=== PATIENT | female | born 1940 | race Caucasian/White ===

== ENCOUNTER 2016-08-08 06:47 | Observation (INO) | payer OTHER ==
--- NOTE | 2016-08-07 17:17 | GHP ---
[f rep st] PREOP HISTORY AND PHYSICAL ADMISSION DIAGNOSIS: Symptomatic rectocele. HISTORY: This is a 76-year-old lady who has had a significant rectocele with symptoms and some mild prolapse, and she has been fitted with a pessary in the past that was not successful in treatment of her problem. At the present time, she is to undergo rectocele repair with possible colpocleisis. She has had a previous transobturator tape years ago, and then had a sacrospinous suspension, 2013. She has been pleased with the results. She is not sexually active and a colpocleisis would be appropriate. She is to undergo repair of the rectocele with porcine material. PAST MEDICAL HISTORY: Chronic cystitis with bladder issues, prolapsed vaginal wall, rectocele. PAST SURGERIES: Have been bladder sling, breast surgery, gallbladder, hysterectomy, and transobturator tape. MEDICATIONS: Include probiotics, Synthroid, vitamins. ALLERGIES: To nitrofurantoin, sulfonamides, and trimethoprim. FAMILY HISTORY: Hypertension. SOCIAL HISTORY: Nonsmoker, nondrinker. . Retired. REVIEW OF SYSTEMS: Negative cardiac, respiratory, endocrine. GI: Positive because of the rectocele. PHYSICAL EXAM: VITAL SIGNS: Stable. CHEST: Clear. HEART: Regular rate, rhythm. ABDOMEN: Normal. No organomegaly, rebound or guarding. She does have abdominal obesity, and on exam, she has significant rectocele. PLAN: At the present time, she is admitted for the rectocele repair. Indications, complications, options, and risks associated with the procedure have been discussed. Written and verbal consent was obtained. She is admitted for the above procedure. /[id number]/MODL MTDD
[2016-08-08] MEDS ORDERED: LIDOCAINE 1% 2 ML INJ ONE (06:54)
[2016-08-08] MEDS ORDERED: ceFAZolin 2 GM/DEXTROSE 100 ML IV ONE (07:00)
[2016-08-08] MEDS ORDERED: BUPIVACAINE/EPI 0.25% 30 ML SDV ONE (07:43)
[2016-08-08] MEDS ORDERED: ONDANSETRON 4 MG/2 ML VIAL ONE (07:47)
[2016-08-08] MEDS ORDERED: ROCURONIUM 50 MG/5 ML VIAL ONE (07:47)
[2016-08-08] MEDS ORDERED: DEXAMETHASONE 4 MG/ML VIAL ONE (07:47)
[2016-08-08] MEDS ORDERED: LIDOCAINE 2% 100 MG/5 ML SYR ONE (07:47)
[2016-08-08] MEDS ORDERED: PROPOFOL 200 MG/20 ML VIAL ONE (07:48)
[2016-08-08] MEDS ORDERED: fentaNYL 250 MCG/5 ML INJ ONE (07:48)
[2016-08-08] MEDS ORDERED: MIDAZOLAM 2 MG/2 ML VIAL ONE (08:21)
[2016-08-08] MEDS ORDERED: METHYLENE BLUE 0.5% 50 MG/10 ML AMP ONE (08:43)
[2016-08-08] MEDS ORDERED: epHEDrine SULFATE 10 MG/ML SYR ONE (09:01)
[2016-08-08] MEDS ORDERED: SUGAMMADEX SODIUM 200 MG/2 ML VIAL IVP ONE (09:48)
[2016-08-08] MEDS ORDERED: fentaNYL 100 MCG/2 ML INJ ONE (09:59)
[2016-08-08] MEDS ORDERED: HYDROmorphONE/DILAUDID 1 MG/ML SYR ONE (09:59)
[2016-08-08 10:51] VITALS: RESP 18
--- NOTE | 2016-08-08 11:24 | GOP ---
[f rep st] OPERATIVE REPORT DATE OF OPERATION: 08/08/2016 SURGEON: Tavo Jiang MD PREOPERATIVE DIAGNOSIS: Symptomatic rectocele with vaginal prolapse. POSTOPERATIVE DIAGNOSIS: Symptomatic rectocele with vaginal prolapse. PROCEDURE PERFORMED: Sacrospinous ligament suspension of rectocele using Strattice reconstructive t issue matrix. FINDINGS: SPECIMENS: Vaginal wall posteriorly. ESTIMATED BLOOD LOSS: 25 mL DESCRIPTION OF PROCEDURE: After appropriate time-out and undergoing general anesthesia with Dr. Charla ying, she had the posterior vaginal wall infiltrated subcutaneously with a combination of Marcaine and saline for hydrodissection, and at that point, incision was made and I mobilized the colon separ ate from the vaginal wall. I then went up to identify both the sacrospinous ligaments and promontor y on both the right and left sides. With the Capio needle, I was able to pass the needle into the sa crospinous ligament 1 cm medial to the prominence and then used the Strattice and I measured a trape zoid site that was 11 cm at the top, 6 cm at the apex and 11 cm arm length on both the right and lef t sides. Then at that point, placed Vicryl at the top of the vaginal cuff and then pexed the Stratt ice material appropriately with the 2 sacrospinous sutures and the Vicryl. I did approximate the ap ex of the vagina several times with Vicryl to make sure there was no internal herniation and then ap proximated the Strattice material to the most distal part of the vaginal vault and the levators and made sure not to incorporate any intestinal lumen. There were internal hernias after closure with r einforcement of the edges of the material. Hemostasis noted. I excised redundant vaginal wall and then closed it with a 3-0 Vicryl, and tried to approximate and close the space the best possibl e way and then a VagPak was placed. She tolerated the procedure well. Rectal exam afterwards revea led no compromise of the rectal vault and no encroachment on the mucosa with any sutures. Catheter will be remaining in place and she will be admitted for postoperative care for 24 hour obs. COMPLICATIONS: None. /[id number]/MODL
[2016-08-08] MEDS: OXYCODONE/APAP 5/325 TAB PO PRN ×2 (13:03→21:31)
[2016-08-08] MEDS ORDERED: DOCUSATE SODIUM 100 MG CAP PO SCH (21:00)
[2016-08-09 05:22] VITALS: TEMP 98
[2016-08-09] MEDS ORDERED: NON-FORMULARY NEW DRUG (Epinephrine [Epipen 0.3 Mg] 0.3 MG) IM PRN (08:13)
[2016-08-09 08:30] VITALS: BP 124/82; PULSE 72; O2SAT 90
[2016-08-09] MEDS ORDERED: ASCORBIC ACID 500 MG TAB PO SCH (09:00)
[2016-08-09] MEDS ORDERED: CYANO/VITAMIN B12 1000 MCG TAB PO SCH (09:00)
[2016-08-09] MEDS ORDERED: CHOLECALCIFEROL VIT D3 1,000 UNITS TAB PO SCH (09:00)
[2016-08-09] MEDS ORDERED: MULTIVITAMINS 1 EACH TAB PO SCH (09:00)
[2016-08-09] MEDS ORDERED: Herbals/Supplements -Info Only PO SCH (09:00)
[2016-08-09] MEDS ORDERED: TEARS/DEXTRAN 70/HYPROMELLOSE 15 ML OPHT.BTL EACHEYE SCH (12:00)
[2016-08-10] MEDS ORDERED: LEVOTHYROXINE 100 MCG TAB PO SCH
== END 2016-08-09 09:58 | disposition home or self-care (01) ==
LOC: F1N 06:47
PROVIDERS: ADMIT Specialist; ATTEND Specialist
PROC: 0USG0ZZ Reposition Vagina, Open Approach (ICD-10-PCS; principal; 2016-08-08 08:30)
DX: N81.6 Rectocele (principal); N81.9 Female genital prolapse, unspecified; N39.3 Stress incontinence (female) (male); E03.9 Hypothyroidism, unspecified
CPT/HCPCS: 57250; 57282; J0690; J1100; J1170; J2001; J2250; J2405; J2704; J3010; Q4130; Q9968

== ENCOUNTER → 2016-12-31 | Outpatient (CLI) | payer OTHER | LOC: FIMAGING 11:04 | PROVIDERS: ATTEND Internal Medicine | DX: Z12.31 Encounter for screening mammogram for malignant neoplasm of breast (principal) | CPT/HCPCS: G0202 ==